=== PATIENT | male | born 1985 | race Caucasian/White ===

== ENCOUNTER 2016-09-17 15:34 | Emergency (ER) | payer SELFPAY ==
[~2016-09-17] VITALS: Ht 177.8 cm; Wt 80.5 kg
[~2016-09-17 15:34] MED LIST: FAMO-18 PO; LORA-407 PO; ONDA4TAB8 PO
[2016-09-17 15:42] VITALS: Ht 177.8 cm; Wt 80.5 kg
[2016-09-17 17:06] LABS: CREATININE 0.79 mg/dl (0.61-1.24)
[2016-09-17] MEDS ORDERED: SOD CHLORIDE 0.9% 0 ML ONE (17:24)
[2016-09-17] MEDS ORDERED: IOHEXOL 300MG/ML 150 ML BTL ONE (17:24)
[2016-09-17] MEDS ORDERED: SOD CHLORIDE 0.9% 250 ML ONE (17:24)
--- NOTE | 2016-09-17 17:58 | RADRPT ---
PROCEDURE: CT Abdomen and Pelvis with contrast. CLINICAL INDICATION: Right lower quadrant abdominal pain.. TECHNIQUE: CT scan of the abdomen and pelvis with contrast was performed on a multi-detector high- resolution CT scanner. The patient was scanned following the uncomplicated intravenous administrati on of 100 cc of Omnipaque-300. Coronal and sagittal reformatted images were obtained from the axial source images. Images were reviewed on a high-resolution PACS workstation. DOSE: CTDI: (Vol. ) 11.62 mGy, DLP: 6.8 6.53 mGy-cm COMPARISON: None. FINDINGS: Lung Bases: Unremarkable. GI:. There is a small hiatal hernia. Liver: Liver appears normal in size and pattern enhancement. There is trace ascites around the ante rior liver capsule. Gallbladder: Unremarkable. Pancreas: Unremarkable. Spleen: Unremarkablel Adrenals: Unremarkable. Kidneys: Kidneys function symmetrically. There is no evidence of enhancing mass, urolithiasis or ob structive uropathy. Bladder: Unremarkable. Pelvic Organs: Unremarkable. Skeleton: Normal for age. Other: There is a small right inguinal hernia containing fat only. IMPRESSION: 1. Very mild diffuse colonic wall edema suggesting a very mild colitis. 2. Normal appearing appendix visualized. 3. Trace ascites around the anterior liver capsule of uncertain significance. 4. Small hiatal hernia. 5. No other significant intra-abdominal or pelvic process identified. RPTAT: [facility] Physician Kip Date Time Electronically viewed and signed by Physician Kip on 09/17/2016 17:58 /
[2016-09-17] MEDS ORDERED: ONDA4TAB14 PO (18:24)
[2016-09-17] MEDS ORDERED: METR500T PO (18:24)
[2016-09-17] MEDS ORDERED: CIPR500T4 PO (18:24)
--- NOTE | 2016-09-17 18:31 | ERD ---
ER Documentation Chief Complaint Date/Time DATE: 09/17/16 TIME: 18:27 Chief Complaint Complains of abdominal pain x 3 days HPI This is a 31-year-old male who is complaining of some diarrhea for the past 3 days having a few episodes each day is watery and brown nonbloody. 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 He states he is wearing a back brace as well as a tool belt that are quite tight on the lower abdomen. He says if he is not wearing the belt he does not have any issues and does not have any vomiting on the weekends. Patient states he does not vomit unless he is in this position. Vomit has no blood or bile. ROS All systems reviewed and are negative except as per history of present illness. Medications Home Meds Active Scripts Ondansetron (Ondansetron Odt) 4 Mg Tab.rapdis, 4 MG PO Q6H Y for NAUSEA AND/OR VOMITING, #14 TAB Prov:DUDLEY PABON DO 09/17/16 Metronidazole* (Flagyl*) 500 Mg Tablet, 500 MG PO TID for 7 Days, TAB Prov:DUDLEY PABON DO 09/17/16 Ciprofloxacin Hcl* (Ciprofloxacin Hcl*) 500 Mg Tablet, 500 MG PO BID for 7 Days , TAB Prov:DUDLEY PABON DO 09/17/16 Ondansetron Hcl* (Zofran*) 4 Mg Tablet, 4 MG PO Q6H for NAUSEA AND/OR VOMITING, #30 TAB Prov:RED SHAFFER PA-C 01/05/16 Famotidine* (Pepcid*) 20 Mg Tablet, 20 MG PO BID for 14 Days, TAB Prov:RED SHAFFER PA-C 01/05/16 Reported Medications Loratadine (Claritin) 10 Mg Tablet, 10 MG PO DAILY 02/28/11 Allergies Allergies: Coded Allergies: No Known Allergy (Unverified , 01/05/16) PMhx/Soc History of Surgery: No Anesthesia Reaction: No Hx Neurological Disorder: No Hx Respiratory Disorders: No Hx Cardiac Disorders: No Hx Psychiatric Problems: No Hx Miscellaneous Medical Probl: No Hx Alcohol Use: Yes (OCC) Hx Substance Use: No Hx Tobacco Use: No Smoking Status: Never smoker FmHx Family History: No coronary disease Physical Exam Vitals Vital Signs Date Time Temp Pulse Resp B/P Pulse Ox O2 Delivery O2 Flow Rate FiO2 09/17/16 15:42 98.3 75 20 140/79 96 Physical Exam Const: Well-developed, well-nourished Head: Atraumatic, normocephalic Eyes: Normal Conjunctiva, PERRLA, EOMI, normal sclera, no nystagmus ENT: Normal External Ears, Nose and Mouth, moist mucus membranes. Neck: Full range of motion. No meningismus, no lymphadenopathy. Resp: Clear to auscultation bilaterally, no wheezing, rhonchi, rales Cardio: Regular rate and rhythm, no murmurs, S1 S2 present Abd: Soft, mild right lower quadrant tenderness, non distended. Normal bowel sounds, no guarding or rebound, no pulsitile abdominal masses or bruits Skin: No petechiae or rashes, no ecchymosis , no maculopapular rash Back: No midline or flank tenderness Ext: No cyanosis, or edema, FROM x 4, normal inspection, neurovascularly intact x 4 Neur: Awake and alert, STR 5/5 x 4, sensation intact x 4, no focal findings, cerebellum intact Psych: Normal Mood and Affect Result Diagram: 09/17/16 9505 Results 24 hrs Laboratory Tests Test 09/17/16 16:35 Sodium Level 143mmol/L Potassium Level 4.0mmol/L Chloride Level 105mmol/L Carbon Dioxide Level 26mmol/L Anion Gap 16 Blood Urea Nitrogen 15mg/dl Creatinine 0.79mg/dl Glucose Level 87mg/dl Calcium Level 10.0mg/dl Current Medications Medications (Trade) Dose Ordered Sig/Sharlene Route PRN Reason Start Time Stop Time Status Last Admin Dose Admin IV Flush 10 ml 10 ml STK-MED ONCE .ROUTE 09/17/16 17:24 09/17/16 17:25 DC 09/17/16 17:32 Sodium Chloride (NS) 0 ml @ ud STK-MED ONCE .ROUTE 09/17/16 17:24 09/17/16 17:25 DC Iohexol 150 ml 150 ml STK-MED ONCE .ROUTE 09/17/16 17:24 09/17/16 17:25 DC 09/17/16 17:33 Sodium Ch[facility]ide (NS) [facility] ON[facility] .ROUTE 09/17/16 17:24 09/17/16 17:25 DC 09/17/16 17:33 Procedures/MDM PROCEDURE: CT Abdomen and Pelvis with contrast. CLINICAL INDICATION: Right lower quadrant abdominal pain.. TECHNIQUE: CT scan of the abdomen and pelvis with contrast was performed on a multi-detector high-resolution CT scanner. The patient was scanned following the uncomplicated intravenous administration of 100 cc of Omnipaque-300. Coronal and sagittal reformatted images were obtained from the axial source images. Images were reviewed on a high-resolution PACS workstation. DOSE: CTDI: (Vol. ) 11.62 mGy, DLP: 6.8 6.53 mGy-cm COMPARISON: None. FINDINGS: Lung Bases: Unremarkable. GI:. There is a small hiatal hernia. Liver: Liver appears normal in size and pattern enhancement. There is trace ascites around the anterior liver capsule. Gallbladder: Unremarkable. Pancreas: Unremarkable. Spleen: Unremarkablel Adrenals: Unremarkable. Kidneys: Kidneys function symmetrically. There is no evidence of enhancing mass , urolithiasis or obstructive uropathy. Bladder: Unremarkable. Pelvic Organs: Unremarkable. Skeleton: Normal for age. Other: There is a small right inguinal hernia containing fat only. IMPRESSION: 1. Very mild diffuse colonic wall edema suggesting a very mild colitis. 2. Normal appearing appendix visualized. 3. Trace ascites around the anterior liver capsule of uncertain significance. 4. Small hiatal hernia. 5. No other significant intra-abdominal or pelvic process identified. RPTAT: [facility] Physician Kip Date Time Electronically viewed and signed by Physician Kip on 09/17/2016 17: 58 DILMA/ CC: DUDLEY PABON DO Patient does have evidence of some mild colitis which I will treat with Cipro and Flagyl. I feel the patient is vomiting because he has increased intra-abdominal pressure. He is squatting down on his knees and bending over crunching the abdomen while wearing a tight back brace belt as well as a tight tool belt. Then he is grabbing a cable and pulling with a lot of force is not exhaling while pulling increasing intra-abdominal pressure even more. I told him to experiment by pulling the cable at work tomorrow without the belt or the back brace and exhale as he pulls to see if he does not vomit. Symptoms do not occur less he is in his position. Departure Diagnosis: Primary Impression: Colitis Condition: Stable Patient Instructions: Vomiting And Diarrhea, Nonspecific (Adult) DUDLEY PABON DO Sep 17, 2016 18:31
[2016-09-17 18:39] VITALS: BP 128/75; PULSE 70; RESP 20; TEMP 98.3
== END 2016-09-17 18:41 | disposition home or self-care (01) ==
LOC: FTE 15:34
DX: K52.9 Noninfective gastroenteritis and colitis, unspecified (principal)
CPT/HCPCS: 74177; 80048; 99285; J7050; Q9967

== ENCOUNTER 2016-09-24 10:47 | Emergency (ER) | payer SELFPAY ==
[~2016-09-24] VITALS: Ht 177.8 cm; Wt 80.0 kg
[~2016-09-24 10:47] MED LIST changes: +CIPR500T4 PO; +METR500T PO; +ONDA4TAB14 PO
[2016-09-24 10:50] VITALS: Ht 177.8 cm; Wt 80.0 kg
[2016-09-24 11:41] LABS: ADD SCAN DIFF NO
[2016-09-24 12:08] LABS: ADD UMIC YES; UR ASCORBIC ACID NEGATIVE (NEGATIVE); UR BILIRUBIN (Dip) NEGATIVE (NEGATIVE); UR BLOOD (Dip) NEGATIVE (NEGATIVE); UR CLARITY CLEAR (CLEAR); UR COLOR YELLOW (YELLOW); UR GLUCOSE (Dip) NEGATIVE (NEGATIVE); UR KETONES (Dip) NEGATIVE (NEGATIVE); UR LEUKOCYTE ESTERASE (Dip) TRACE Leu/ul (NEGATIVE); UR NITRITE (Dip) NEGATIVE (NEGATIVE); UR RBC 0 /HPF (0-5); UR SPECIFIC GRAVITY (Dip) 1.011 (1.003-1.030); UR TOTAL PROTEIN (Dip) NEGATIVE (NEGATIVE); UR UROBILINOGEN (Dip) NEGATIVE (NEGATIVE)
[2016-09-24 12:16] LABS: ALBUMIN/GLOBULIN RATIO 1.28; BILIRUBIN,INDIRECT 0.4 mg/dl (0-1.1); BILIRUBIN,TOTAL 0.4 mg/dl (0.2-1.3); CALCIUM 9.9 mg/dl (8.4-10.2); CREATININE 0.9 mg/dl (0.61-1.24); POTASSIUM 4.1 mmol/L (3.5-5.1); TOTAL PROTEIN 8.9 g/dl (6.1-8.1)
[2016-09-24 12:19] LABS: BASOPHIL # 0.1 10^3/ul (0.0-0.1); BASOPHILS % 1.2 % (0.0-2.0); EOSINOPHILS # 0.5 10^3/ul (0.0-0.5); HEMATOCRIT 47.6 % (42.0-52.0); HEMOGLOBIN 15.7 g/dl (14.0-18.0); LYMPHOCYTES # 2.9 10^3/ul (0.8-2.9); LYMPHOCYTES % 37.9 % (15.0-51.0); MEAN CORPUSCULAR HEMOGLOBIN 30.1 pg (29.0-33.0); MEAN CORPUSCULAR VOLUME 91.2 fl (82.0-101.0); MEAN PLATELET VOLUME 9.5 fl (7.4-10.4); MONOCYTE # 0.6 10^3/ul (0.3-0.9); MONOCYTES % 7.5 % (0.0-11.0); NEUTROPHIL # 3.5 10^3/ul (1.6-7.5); NEUTROPHILS % 46.1 % (39.0-77.0); PLATELET COUNT 309 10^3/UL (140-415); RED BLOOD COUNT 5.22 10^6/ul (4.70-6.10); RED CELL DISTRIBUTION WIDTH 12.4 % (11.5-14.5); WHITE BLOOD COUNT 7.6 10^3/ul (4.8-10.8)
--- NOTE | 2016-09-24 12:37 | RADRPT ---
PROCEDURE: Right upper quadrant abdominal ultrasound. CLINICAL INDICATION: Abdominal pain TECHNIQUE: Riggs scale and color doppler ultrasound images of the right upper quadrant. COMPARISON: CT abdomen 09/17/1969 FINDINGS: Pancreas: Visualized portions appear of normal echogenicity, no focal lesions. Liver: Morphology: Normal in size and contour. Echogenicity: Normal. Focal lesions: None. Main portal vein: Patent with hepatopetal flow. Biliary System: Normal appearing gallbladder wall. No gallstones seen. No intrahepatic biliary dilatation. Common bile duct measures 3.3 mm in maximal dimension. Kidneys: Right 9.8 cm in length. Right renal cortical thickness is preserved. Normal echogenicity. No hydronephrosis. No renal calculi. No focal lesions. No free fluid identified. IMPRESSION: Normal gallbladder without gallstones. RPTAT: AADD .Owen Jain MD, Date Time Electronically viewed and signed by .Owen Jain MD, on 09/24/2016 12:36 .B/
--- NOTE | 2016-09-24 13:05 | ERD ---
ER Documentation Chief Complaint Date/Time DATE: 09/24/16 TIME: 13:03 Chief Complaint DARK BROWN URINE SINCE YESTERDAY HPI This 31-year-old male complains of dark urine since yesterday. He describes as [employer] color. History significant for being seen here last week and be treated for colitis. Patient is some improvement in his abdominal pain. He denies any fevers, vomiting, shortness breath chest pain. Patient is taking Cipro and Flagyl. ROS All systems reviewed and are negative except as per history of present illness. Medications Home Meds Active Scripts Ondansetron (Ondansetron Odt) 4 Mg Tab.rapdis, 4 MG PO Q6H Y for NAUSEA AND/OR VOMITING, #14 TAB Prov:MAGALI PABONS A. DO 09/17/16 Metronidazole* (Flagyl*) 500 Mg Tablet, 500 MG PO TID for 7 Days, TAB Prov:MARNIEOSJOSESTOLOS A. DO 09/17/16 Ciprofloxacin Hcl* (Ciprofloxacin Hcl*) 500 Mg Tablet, 500 MG PO BID for 7 Days , TAB Prov:JOSE PABONSTOLOS A. DO 09/17/16 Ondansetron Hcl* (Zofran*) 4 Mg Tablet, 4 MG PO Q6H for NAUSEA AND/OR VOMITING, #30 TAB Prov:RED SHAFFER PA-C 01/05/16 Famotidine* (Pepcid*) 20 Mg Tablet, 20 MG PO BID for 14 Days, TAB Prov:RED SHAFFER PA-C 01/05/16 Reported Medications Loratadine (Claritin) 10 Mg Tablet, 10 MG PO DAILY 02/28/11 Allergies Allergies: Coded Allergies: No Known Allergy (Unverified , 01/05/16) PMhx/Soc History of Surgery: No Anesthesia Reaction: No Hx Neurological Disorder: No Hx Respiratory Disorders: No Hx Cardiac Disorders: No Hx Psychiatric Problems: No Hx Miscellaneous Medical Probl: No Hx Alcohol Use: Yes (OCC) Hx Substance Use: No Hx Tobacco Use: No Physical Exam Vitals Vital Signs Date Time Temp Pulse Resp B/P Pulse Ox O2 Delivery O2 Flow Rate FiO2 09/24/16 10:50 98.2 71 16 135/74 98 Physical Exam Const: [] Alert, [id number] per Head: Atraumatic Eyes: Normal Conjunctiva. Nonicteric ENT: Normal External Ears, Nose and Mouth. Neck: Full range of motion..~ No meningismus. Resp: Clear to auscultation bilaterally Cardio: Regular rate and rhythm, no murmurs Abd: Soft, non tender, non distended. Normal bowel sounds Skin: No petechiae or rashes Back: No midline or flank tenderness Ext: No cyanosis, or edema Neur: Awake and alert Psych: Normal Mood and Affect Result Diagram: 09/24/16 1130 09/24/16 1130 Results 24 hrs Laboratory Tests Test 09/24/16 11:25 09/24/16 11:30 Urine Color YELLOW Urine Clarity CLEAR Urine pH 6.0 Urine Specific Organ 1.011 Urine Ketones NEGATIVEmg/dL Urine Nitrite NEGATIVEmg/dL Urine Bilirubin NEGATIVEmg/dL Urine Urobilinogen NEGATIVEmg/dL Urine Leukocyte Esterase TRACELeu/ul Urine Microscopic RBC 0/HPF Urine Microscopic WBC 1/HPF Urine Hemoglobin NEGATIVEmg/dL Urine Glucose NEGATIVEmg/dL Urine Total Protein NEGATIVEmg/dl White Blood Count 7.610^3/ul Red Blood Count 5.2210^6/ul Hemoglobin 15.7g/dl Hematocrit 47.6% Mean Corpuscular Volume 91.2fl Mean Corpuscular Hemoglobin 30.1pg Mean Corpuscular Hemoglobin Concent 33.0g/dl Red Cell Distribution Width 12.4% Platelet Count 23835^3/UL Mean Platelet Volume 9.5fl Neutrophils % 46.1% Lymphocytes % 37.9% Monocytes % 7.5% Eosinophils % 7.0% Basophils % 1.2% Nucleated Red Blood Cells % 0.0/100WBC Neutrophils # 3.510^3/ul Lymphocytes # 2.910^3/ul Monocytes # 0.610^3/ul Eosinophils # 0.510^3/ul Basophils # 0.110^3/ul Nucleated Red Blood Cells # 0.010^3/ul Sodium Level 143mmol/L Potassium Level 4.1mmol/L Chloride Level 101mmol/L Carbon Dioxide Level 24mmol/L Anion Gap 22 Blood Urea Nitrogen 19mg/dl Creatinine 0.90mg/dl Glucose Level 89mg/dl Calcium Level 9.9mg/dl Total Bilirubin 0.4mg/dl Direct Bilirubin 0.00mg/dl Indirect Bilirubin 0.4mg/dl Aspartate Amino Transf (AST/SGOT) 25IU/L Alanine Aminotransferase (ALT/SGPT) 36IU/L Alkaline Phosphatase 90IU/L Total Protein 8.9g/dl Albumin 5.0g/dl Globulin 3.90g/dl Albumin/Globulin Ratio 1.28 Lipase 111U/L Procedures/MDM CBC and CMP and lipase normal. Right upper quadrant ultrasound normal. Urine is normal in appearance and shows no bilirubin, blood, glucose. There is trace leukocytes but 0 WBCs. Patient presents with dark colored urine of uncertain etiology with normal-appearing urine today. No signs or symptoms of acute causes of presenting complaint. Discharged home instructed for clear fluids, continuation of antibiotics and primary care follow-up. Patient is advised to return for fevers, vomiting, shortness breath or chest pain with primary doctor this week. The patient was stable with no new complaints during the ER course. Clinically, there is no current evidence to suggest meningitis, sepsis, acute abdomen, pneumonia, acute coronary syndrome, pulmonary embolism, or any other emergent condition appearing to require further evaluation or hospitalization. The patient should certainly return for any new or worsening symptoms per the aftercare instructions. They should otherwise follow-up with her primary care doctor for reevaluation this week. Departure Diagnosis: Primary Impression: Nonspecific finding on examination of urine Condition: Stable Patient Instructions: Symptoms With Uncertain Cause Additional Instructions: Examinations normal today. Uncertain cause of symptoms. Drink clear fluids and continue antibiotics for recheck with primary doctor this week return to the ER for new or worsening symptoms. JACKIE ALBERT MD Sep 24, 2016 13:04
[2016-09-24 13:14] VITALS: BP 122/77; PULSE 69; RESP 17
== END 2016-09-24 13:17 | disposition home or self-care (01) ==
LOC: FTE 10:47
DX: R82.99 Other abnormal findings in urine (principal)
CPT/HCPCS: 36415; 76705; 80053; 81001; 83690; 85025

== ENCOUNTER 2017-03-22 20:54 | Emergency (ER) | END 2017-03-23 03:48 | disposition left against medical advice (07) ==

== ENCOUNTER 2017-11-05 17:13 | Emergency (ER) | END 2017-11-05 21:16 | disposition home or self-care (01) ==

== ENCOUNTER 2018-01-17 14:17 | Emergency (ER) | END 2018-01-17 16:13 | disposition home or self-care (01) ==

== ENCOUNTER 2018-02-18 10:04 | Emergency (ER) | END 2018-02-18 11:24 | disposition home or self-care (01) ==